=== PATIENT | male | born 1990 | race African-American/Black ===

== ENCOUNTER 2019-04-23 11:56 | Emergency (ER) | payer MEDICAID ==
[~2019-04-23] VITALS: Ht 175.3 cm; Wt 81.3 kg
[2019-04-23 12:28] VITALS: BP 142/85
== END 2019-04-23 15:01 | disposition left against medical advice (07) ==
LOC: ER 11:56
DX: Z53.21 Procedure and treatment not carried out due to patient leaving prior to being seen by health care provider (principal)